=== PATIENT | male | born 1975 | race Caucasian/White ===

== ENCOUNTER 2021-02-01 17:11 | Emergency (ER) | payer OTHER, SELFPAY ==
[2021-02-01 17:33] VITALS: BMI 22.7
[2021-02-01] MEDS ORDERED: BAMLANIVIMAB 700 MG, ETESEVIMAB 1,400 MG in SODIUM CHLORIDE 250 ML IVPB ONE (18:00)
[2021-02-01 19:43] VITALS: PULSE 88; TEMP 98.2
[2021-02-01 22:17] VITALS: BP 110/76
== END 2021-02-01 22:17 | disposition home or self-care (01) ==
LOC: JER 17:11 → JCOVINFU 17:11
DX: U07.1 COVID-19 (principal)
CPT/HCPCS: 99284-25; M0239; Q0239; Q0245